=== PATIENT | male | born 1980 | race Two or more races ===

== ENCOUNTER 2022-12-18 13:33 | Observation (INO) | payer MEDICAID ==
[2022-12-18] MEDS ORDERED: SODIUM CHLORIDE 0.9% 1,000 ML IV STA (14:01)
[2022-12-18] MEDS ORDERED: HYDROmorphone 1 MG/ML CARPUJECT IVP STA ×2 (14:01→16:55)
--- NOTE | 2022-12-18 14:05 | ED Physician Documentation ---
History of Present Illness - Stated complaint Stated Complaint: ABD PX - Chief complaint Chief Complaint: Abd Pain - Additonal information Additional information: 42-year-old male presents emergency department for evaluation of acute left lo wer inguinal pain. States it began yesterday morning. Pain is worse when standing up. He feels a bulge in the inguinal region. Pain improves when he puts pressure on the bulge. He does have a history of inguinal hernia repair when he was a child. He is unsure which side. He has had no fevers or vomiting. He does appear very uncomfortable. Denies taking any prescribed medications. Denies alcohol use. Daily tobacco user. His at the bedside also reports the patient's been having some left lower back discomfort after mowing tall grass last week. Has taken Tylenol without relief of symptoms. No melena or hematochezia. No previous past surgical history Review of Systems Constitutional: denies: Fever, Chills Cardiac: reports: Reviewed and negative Respiratory: reports: Reviewed and negative GI: reports: Abdominal Pain. denies: Nausea, Vomiting, Bloody / black stool : reports: Reviewed and negative Skin: reports: Reviewed and negative Musculoskeletal: reports: Reviewed and negative PD PAST MEDICAL HISTORY - Present Medications Home Medications: Ambulatory Orders Medication Instructions Recorded Confirmed No Known Home Medications 12/18/22 12/18/22 - Allergies Allergies/Adverse Reactions: Allergies Allergy/AdvReac Type Severity Reaction Status Date / Time No Known Drug Allergies Allergy Verified 12/18/22 13:45 PD ED PE NORMAL - General General: Alert and oriented X 3. No: No acute distress (Appears uncomfortable and in pain) - Cardiac Cardiac: RRR, No murmur - Respiratory Respiratory: No respiratory distress - Abdomen Abdomen: Normal bowel sounds, Soft. No: Non tender (Palpable hernia felt in the left lower quadrant inguinal region. I am unable to reduce it.) - Derm Derm: Normal color, Warm and dry - Extremities Extremities: No deformity - Neuro Neuro: Alert and oriented X 3, natural resource specialist 2-12 intact Eye Opening: Spontaneous Motor: Obeys Commands Verbal: Oriented GCS Score: 15 - Psych Psych: Normal mood Results - Vitals Vitals: Vital Signs - 24 hr 12/18/22 12/18/22 12/18/22 13:41 14:01 16:07 Temperature 35.7 C L Heart Rate 97 61 59 L Respiratory 19 26 H 16 Rate Blood Pressure 130/87 H 161/95 H 166/93 H O2 Saturation 98 97 98 Oxygen O2 Source Room air - Labs Labs: Laboratory Tests 12/18/22 12/18/22 12/18/22 14:02 14:02 16:50 WBC 18.2 H RBC 5.04 Hgb 15.0 Hct 45.2 MCV 89.7 MCH 29.8 MCHC 33.2 RDW 13.6 Plt Count 328 MPV 8.8 Neut # (Auto) 15.1 H Lymph # (Auto) 2.1 [place] # (Auto) 0.9 Eos # (Auto) 0.0 Baso # (Auto) 0.1 Absolute Nucleated RBC 0.00 Nucleated RBC % 0.0 Sodium 143 Potassium 4.0 Chloride 105 Carbon Dioxide 25 Anion Gap 13.0 BUN 14 Creatinine 1.0 Estimated GFR (MDRD) 81 L Glucose 174 H Calcium 9.2 Total Bilirubin 1.2 H AST 12 ALT 17 Alkaline Phosphatase 76 Total Protein 7.9 Albumin 4.3 Globulin 3.6 Albumin/Globulin Ratio 1.2 Lipase 25 Urine Color YELLOW Urine Clarity CLEAR Urine pH 5.0 Ur Specific [place] 1.010 Urine Protein NEGATIVE Urine Glucose (UA) NEGATIVE Urine Ketones 40 H Urine Occult Blood SMALL H Urine Nitrite NEGATIVE Urine Bilirubin NEGATIVE Urine Urobilinogen 0.2 (NORMAL) Ur Leukocyte Esterase NEGATIVE Urine RBC 0-5 Urine WBC 0-3 Ur Squamous Epith Cells NONE SEEN Urine Bacteria None Seen Ur Microscopic Review INDICATED Urine Culture Comments NOT INDICATED - Rads (name of study) CT abd Relevant Findings:: Final report received (Small right inguinal hernia contains small knuckle of the anterior wall of the cecum without evidence of entrapment or vascular compromise. Normal appendix in the pelvis. Small left inguinal hernia contains fat without bowel involvement) scrotal US Relevant Findings:: Final report received (Left inguinal hernia. Unremarkable ultrasound of the scrotum and testes otherwise) PD Medical Decision Making - ED course Complexity details: reviewed results, re-evaluated patient, considered differential, d/w patient ED course: 42-year-old male presents emergency department for evaluation of acute focal left lower groin/pelvic pain that began yesterday. He points to a site where he has a little bit of swelling and pain is improved when he presses on the lump. He does have a remote history of inguinal hernia repair on the left side when he was an infant. On exam he is exquisitely tender in the left lower quadrant with even minimal palpation. I did obtain a CBC and electrolytes. Per my interpretation there is some significant leukocytosis with white count of 18.2 thousand. No worrisome anemia or otherwise any findings of electrolyte derangement. However given the concern for possible incarceration of the hernia a CT of the abdomen was completed. It does show bilateral inguinal hernias. The right-sided inguinal hernia does have a small amount of bowel but nothing to suggest Incarceration or strangulation. The left inguinal hernia does contain a small amount of fat but no bowel. I am however given how exquisitely tender the patient was with the associated leukocytosis I did ask our surgeon Dr. Edgar Farrar to come to the bedside to evaluate the patient. 1800: Dr. Farrar has evaluated the patient. He feels that the pain is out of proportion for the findings of the inguinal hernia at the bedside. He did requ est a scrotal/testicular ultrasound to rule out epididymal or or chaotic findings that could cause the pain. The patient's urinalysis is not consistent with infection. Subsequently the ultrasound was completed and is negative for findings related to the scrotum and testes. Though the left inguinal hernia is again seen. I discussed this finding with Dr. Farrar at the bedside he is going to admit the patient for observation and reevaluation of his hernia pain. Departure - Departure Disposition: ED Place in Observation Clinical Impression: Left inguinal hernia
[2022-12-18 14:12] LABS: BASOPHILS # (AUTO) 0.1 10^3/uL (0.0-0.1); BASOPHILS % (AUTO) 0.3 %; EOSINOPHILS % (AUTO) 0.2 %; HCT - HEMATOCRIT 45.2 % (42.0-52.0); LYMPHOCYTES # (AUTO) 2.1 10^3/uL (1.5-3.5); LYMPHOCYTES % (AUTO) 11.2 %; MEAN CORPUSCULAR HEMOGLOBIN 29.8 pg (27.0-31.0); MEAN CORPUSCULAR HGB CONC 33.2 g/dL (32.0-36.0); MEAN CORPUSCULAR VOLUME 89.7 fL (80.0-94.0); MEAN PLATELET VOLUME 8.8 fL (7.4-11.4); MONOCYTES # (AUTO) 0.9 10^3/uL (0.0-1.0); MONOCYTES % (AUTO) 5.2 %; NEUTROPHILS # (AUTO) 15.1 10^3/uL (1.5-6.6); NEUTROPHILS % (AUTO) 82.7 %; PLT - PLATELET COUNT 328 10^3/uL (130-450); RED BLOOD COUNT 5.04 10^6/uL (4.70-6.10); RED CELL DISTRIBUTION WIDTH 13.6 % (12.0-15.0); WHITE BLOOD COUNT 18.2 x10^3/uL (4.8-10.8)
[2022-12-18] MEDS ORDERED: iohexoL-300 100 ML VIAL ONE (14:24)
[2022-12-18 14:26] LABS: ALBUMIN 4.3 g/dL (3.2-5.5); ALBUMIN/GLOBULIN RATIO 1.2 (1.0-2.2); BILIRUBIN,TOTAL 1.2 mg/dL (0.2-1.0); CALCIUM 9.2 mg/dL (8.5-10.3); TOTAL PROTEIN 7.9 g/dL (6.7-8.2)
--- NOTE | 2022-12-18 16:03 | CT Report ---
PROCEDURE: CT and pelvis with contrast INDICATIONS: ? incarcerated left inguinal hernia CONTRAST: 100ml omnipaque 300 TECHNIQUE: After the administration of contrast, 5 mm thick sections acquired from the diaphragms to the symphys is. 5 mm thick coronal and sagittal reformats were acquired. For radiation dose reduction, the foll owing was used: automated exposure control, adjustment of mA and/or kV according to patient size. COMPARISON: None FINDINGS: Image quality: Excellent. Lung bases and heart: Unremarkable. Liver: No solid mass. Gallbladder and biliary tree: Spleen: No splenomegaly. Pancreas: No pancreatic ductal dilation. Adrenals: No adrenal nodule. Kidneys and ureters: No hydronephrosis. No renal cystic lesion which requires follow up. No solid mas s. Bowel and peritoneum: No bowel distension. No pathologic free fluid. Lymph nodes: No central or retroperitoneal adenopathy. Vessels: No infrarenal aortic aneurysm. PELVIS Reproductive organs: Unremarkable. Bladder: No abnormal wall thickening, accounting for underdistension. Pelvic lymph nodes: No pelvic adenopathy by size criteria. Bones: Degenerative disc disease and arthropathy Other: Small bilateral inguinal hernias present. Right inguinal hernia does contain small knuckle of anterior wall of the cecum, but no evidence of entrapment. Normal appendix noted in the pelvis. Left inguinal hernia contains fat without bowel involvement. IMPRESSION: 1. Small right inguinal hernia contains small knuckle anterior wall of the cecum without evidence of entrapment or vascular compromise. Normal appendix in the pelvis. 2. Small left inguinal hernia contains fat without bowel involvement. Reviewed by: Kali Arenas MD on 12/18/2022 3:01 PM ALF Approved by: Kali Arenas MD on 12/18/2022 3:01 PM AKJOSE MARTIN Station ID: [id number]
[2022-12-18 16:59] LABS: BILIRUBIN,URINE NEGATIVE (NEGATIVE); GLUCOSE, URINE (UA) NEGATIVE (NEGATIVE); KETONES,URINE (UA) 40 mg/dL (NEGATIVE); LEUKOCYTE ESTERASE, URINE NEGATIVE (NEGATIVE); NITRITE,URINE NEGATIVE (NEGATIVE); OCCULT BLOOD,URINE SMALL (NEGATIVE); PROTEIN,URINE NEGATIVE (NEGATIVE); UROBILINOGEN,URINE 0.2 (NORMAL) E.U./dL (NORMAL)
[2022-12-18 17:01] LABS: CLARITY,URINE CLEAR (CLEAR)
[2022-12-18 17:15] LABS: BACTERIA,URINE None Seen /HPF (None Seen); RBC,URINE 0-5 /HPF (0-5); SQUAMOUS EPITHELIAL CELL,UR NONE SEEN (<= Few); WBC,URINE 0-3 /HPF (0-3)
--- NOTE | 2022-12-18 17:18 | CONSULTATION NOTE ---
Referring Provider Consult Date: 12/18/22 Chief Complaint - Chief Complaint Chief Complaint: left lower quadrant abdominal pain History of Present Illness - History Obtained From Records Reviewed: yes History obtained from: pt Exam Limitations: none - History of Present Illness HPI Comment/Other: strained his back 2 weeks ago while mowing his yard. noticed left groin swelling several days ago. left lower quadrant pain for about 36 hours and currently having chills or shaking. no fever. still has left back pain, left groin pain, and left testicle pain. denies right groin symptoms. his hernia bulge always goes away when he lies flat. History - Past Medical History MRSA Hx?: No - Past Surgical History General: reports: Other Meds/Allgy - Home Medications Home Medications: Ambulatory Orders Medication Instructions Recorded Confirmed No Known Home Medications 12/18/22 12/18/22 - Allergies Allergies/Adverse Reactions: Allergies Allergy/AdvReac Type Severity Reaction Status Date / Time No Known Drug Allergies Allergy Verified 12/18/22 13:45 Review of Systems - Other Findings Other Findings: 10 pt ros as above otherwise unremarkable Exam - Vital Signs Reviewed Vital Signs: Yes Vital Signs: Vital Signs x48h Temp Pulse Resp BP Pulse Ox 12/18/22 16:07 59 L 16 166/93 H 98 12/18/22 14:01 61 26 H 161/95 H 97 12/18/22 13:41 35.7 C L 97 19 130/87 H 98 - Physical Exam General Appearance: positive: Alert, Mild distress Eyes Bilateral: positive: PERRL, EOMI, No scleral icterus ENT: positive: No signs of dehydration Neck: positive: No JVD, Trachea midline Respiratory: positive: No respiratory distress Cardiovascular: positive: Regular rate & rhythm Abdomen: positive: Non-tender, No distention, Other (bilateral inguinal hernias which are soft and easily reducible. no inflammation he is very thin ie easy exam) Neurologic/Psychiatric: positive: Oriented x3 Conclusion and Plan - Lab Results Laboratory Results 12/18/22 16:50: Urine Color YELLOW, Urine Clarity CLEAR, Urine pH 5.0, Ur Specific [place] 1.010, Urine Protein NEGATIVE, Urine Glucose (UA) NEGATIVE, Urine Ketones 40 H, Urine Occult Blood SMALL H, Urine Nitrite NEGATIVE, Urine Bilirubin NEGATIVE, Urine Urobilinogen 0.2 (NORMAL), Ur Leukocyte Esterase NEGATIVE, Ur Microscopic Review INDICATED, Urine Culture Comments Not Reportable 12/18/22 14:02: Sodium 143, Potassium 4.0, Chloride 105, Carbon Dioxide 25, Anion Gap 13.0, BUN 14, Creatinine 1.0, Estimated GFR (MDRD) 81 L, Glucose 174 H, Calcium 9.2, Total Bilirubin 1.2 H, AST 12, ALT 17, Alkaline Phosphatase 76, Total Protein 7.9, Albumin 4.3, Globulin 3.6, Albumin/Globulin Ratio 1.2, Lipase 25 12/18/22 14:02: WBC 18.2 H, RBC 5.04, Hgb 15.0, Hct 45.2, MCV 89.7, MCH 29.8, MCHC 33.2, RDW 13.6, Plt Count 328, MPV 8.8, Neut # (Auto) 15.1 H, Lymph # (Auto) 2.1, [place] # (Auto) 0.9, Eos # (Auto) 0.0, Baso # (Auto) 0.1, Absolute Nucleated RBC 0.00, Nucleated RBC % 0.0 - Diagnostic Imaging Results Diagnostic Imaging Results: positive: Read independently (no inguinal inflammation. no incarcerated hernias) - Diagnosis Diagnosis: left back, groin, testicle pain. easily reducible bilateral inguinal hernias. elevated wbc and chills/ shakes - Plan Plan: ua and testicular ultrasound. if unremarkable and not improving plan admit for observation. we discussed an easily reducible soft inguinal hernia without inflammation by exam or ct scan would not cause an elevated wbc and shaking chills. plan rule out other etiology for his symptoms prior to hernia surgery
[2022-12-18] MEDS ORDERED: iohexoL-300 100 ML VIAL IVP ONE (18:11)
--- NOTE | 2022-12-18 18:26 | Ultrasound Report ---
PROCEDURE: Testicle w/Doppler INDICATIONS: left inguinal pain; known hernia; ? epididymal TECHNIQUE: Real-time scanning was performed of the scrotum and testicles, with image documentation. Color and p ulse Doppler interrogation was performed of both testicles. COMPARISON: None. FINDINGS: Right: Testicle is normal in size at 4.2 x 2 x 2.5 cm, and homogenous in echotexture. Epididymis is normal in overall size and morphology. Small right hydrocele is seen. No varicoceles. Overlying scr otal skin is normal in thickness. Left: Testicle is normal in size at 3.1 x 1.5 x 1.6 cm, and homogeneous in echotexture. Epididymis is normal in overall size and morphology. Tiny less than 5 mm cyst is seen in left epididymis. Small left hydrocele is seen. No varicoceles. Overlying scrotal skin is normal in thickness. Doppler: Color and pulse Doppler demonstrate normal and symmetric arterial flow in both testicles. Focus ultrasound examination in left inguinal region at patient's reported area of pain shows fat-con taining left inguinal hernia with neck measures 1.6 cm in width. This is partially reducible with the nonreducible herniated portion measures 5 x 2.7 cm in size. IMPRESSION: 1. Partially reducible fat-containing left inguinal hernia as above. 2. Normal-appearing bilateral testes. Tiny left epididymal cyst. Small amount of bilateral hydrocele. Reviewed by: Hardy Spear MD on 12/18/2022 6:24 PM PDT Approved by: Hardy Spear MD on 12/18/2022 6:24 PM PDT Station ID: [id number]
[2022-12-18] MEDS ORDERED: SODIUM CHLORIDE FLUSH 0.9% 10 ML SYRINGE IVP PRN (19:03)
[2022-12-18] MEDS ORDERED: ACETAMINOPHEN 325 MG TABLET PO PRN (19:03)
[2022-12-18] MEDS ORDERED: ZOLPIDEM 5 MG TABLET PO PRN (19:03)
[2022-12-18] MEDS ORDERED: oxyCODONE 5 MG TABLET PO PRN (19:03)
[2022-12-18] MEDS: HYDROmorphone 0.5 MG/0.5 ML SYRINGE IVP PRN ×2 (20:02→23:57)
[2022-12-18] MEDS: LACTATED RINGERS 1,000 ML IV SCH (20:02)
[2022-12-18] MEDS: SODIUM CHLORIDE FLUSH 0.9% 10 ML SYRINGE IVP SCH (23:55)
[2022-12-19] MEDS: HYDROmorphone 0.5 MG/0.5 ML SYRINGE IVP PRN ×6 (04:31→23:42)
[2022-12-19] MEDS: LACTATED RINGERS 1,000 ML IV SCH ×2 (05:31→17:11)
[2022-12-19] MEDS: SODIUM CHLORIDE FLUSH 0.9% 10 ML SYRINGE IVP SCH ×3 (07:41→23:27)
[2022-12-19 07:44] LABS: HCT - HEMATOCRIT 40.6 % (42.0-52.0); HGB - HEMOGLOBIN 13.7 g/dL (14.0-18.0); MEAN CORPUSCULAR HGB CONC 33.7 g/dL (32.0-36.0); RED BLOOD COUNT 4.56 10^6/uL (4.70-6.10); RED CELL DISTRIBUTION WIDTH 13.6 % (12.0-15.0); WHITE BLOOD COUNT 13.9 x10^3/uL (4.8-10.8)
--- NOTE | 2022-12-19 08:13 | PROVIDER PROGRESS NOTE ---
Subjective - Prog Note Date Prog Note Date: 12/19/22 - Subjective Subjective: complaint of left lower back pain Objective - Vital Signs/Intake & Output Reviewed Vital Signs: Yes Vital Signs: Vital Signs x48h Temp Pulse Resp BP Pulse Ox 12/19/22 04:35 36.7 C 63 16 187/81 H 97 Intake & Output: Intake & Output 12/16/22 12/17/22 12/18/22 12/19/22 23:59 23:59 23:59 23:59 Intake Total 1703.333 745 Balance 1703.333 745 - Objective General Appearance: positive: No acute distress, Other (awakens to voice. sleepy.) Respiratory: positive: No respiratory distress Abdomen: positive: No distention Neurologic/Psychiatric: positive: Oriented x3 - Lab Results Fish Bones: 12/19/22 07:12 12/18/22 14:02 Other Labs: Lab Results x24hrs 12/19/22 12/18/22 12/18/22 Range/Units 07:12 16:50 14:02 WBC 13.9 H (4.8-10.8) x10^3/uL RBC 4.56 L (4.70-6.10) 10^6/uL Hgb 13.7 L (14.0-18.0) g/dL Hct 40.6 L (42.0-52.0) % MCV 89.0 (80.0-94.0) fL MCH 30.0 (27.0-31.0) pg MCHC 33.7 (32.0-36.0) g/dL RDW 13.6 (12.0-15.0) % Plt Count 282 (130-450) 10^3/uL MPV 9.0 (7.4-11.4) fL Neut # (Auto) (1.5-6.6) 10^3/uL Lymph # (Auto) (1.5-3.5) 10^3/uL [place] # (Auto) (0.0-1.0) 10^3/uL Eos # (Auto) (0.0-0.7) 10^3/uL Baso # (Auto) (0.0-0.1) 10^3/uL Absolute Nucleated RBC x10^3/uL Nucleated RBC % /100WBC Sodium 143 (135-145) mmol/L Potassium 4.0 (3.5-5.0) mmol/L Chloride 105 (101-111) mmol/L Carbon Dioxide 25 (21-32) mmol/L Anion Gap 13.0 (6-13) BUN 14 (6-20) mg/dL Creatinine 1.0 (0.6-1.2) mg/dL Estimated GFR (MDRD) 81 L (>89) Glucose 174 H (70-100) mg/dL Calcium 9.2 (8.5-10.3) mg/dL Total Bilirubin 1.2 H (0.2-1.0) mg/dL AST 12 (10-42) IU/L ALT 17 (10-60) IU/L Alkaline Phosphatase 76 (42-121) IU/L Total Protein 7.9 (6.7-8.2) g/dL Albumin 4.3 (3.2-5.5) g/dL Globulin 3.6 (2.1-4.2) g/dL Albumin/Globulin Ratio 1.2 (1.0-2.2) Lipase 25 (22-51) U/L Urine Color YELLOW Urine Clarity CLEAR (CLEAR) Urine pH 5.0 (5.0-7.5) PH Ur Specific [place] 1.010 (1.002-1.030) Urine Protein NEGATIVE (NEGATIVE) mg/dL Urine Glucose (UA) NEGATIVE (NEGATIVE) mg/dL Urine Ketones 40 H (NEGATIVE) mg/dL Urine Occult Blood SMALL H (NEGATIVE) Urine Nitrite NEGATIVE (NEGATIVE) Urine Bilirubin NEGATIVE (NEGATIVE) Urine Urobilinogen 0.2 (NORMAL) (NORMAL) E.U./dL Ur Leukocyte Esterase NEGATIVE (NEGATIVE) Urine RBC 0-5 (0-5) /HPF Urine WBC 0-3 (0-3) /HPF Ur Squamous Epith Cells NONE SEEN (<= Few) Urine Bacteria None Seen (None Seen) /HPF Ur Microscopic Review INDICATED Urine Culture Comments NOT INDICATED 12/18/22 Range/Units 14:02 WBC 18.2 H (4.8-10.8) x10^3/uL RBC 5.04 (4.70-6.10) 10^6/uL Hgb 15.0 (14.0-18.0) g/dL Hct 45.2 (42.0-52.0) % MCV 89.7 (80.0-94.0) fL MCH 29.8 (27.0-31.0) pg MCHC 33.2 (32.0-36.0) g/dL RDW 13.6 (12.0-15.0) % Plt Count 328 (130-450) 10^3/uL MPV 8.8 (7.4-11.4) fL Neut # (Auto) 15.1 H (1.5-6.6) 10^3/uL Lymph # (Auto) 2.1 (1.5-3.5) 10^3/uL [place] # (Auto) 0.9 (0.0-1.0) 10^3/uL Eos # (Auto) 0.0 (0.0-0.7) 10^3/uL Baso # (Auto) 0.1 (0.0-0.1) 10^3/uL Absolute Nucleated RBC 0.00 x10^3/uL Nucleated RBC % 0.0 /100WBC Sodium (135-145) mmol/L Potassium (3.5-5.0) mmol/L Chloride (101-111) mmol/L Carbon Dioxide (21-32) mmol/L Anion Gap (6-13) BUN (6-20) mg/dL Creatinine (0.6-1.2) mg/dL Estimated GFR (MDRD) (>89) Glucose (70-100) mg/dL Calcium (8.5-10.3) mg/dL Total Bilirubin (0.2-1.0) mg/dL AST (10-42) IU/L ALT (10-60) IU/L Alkaline Phosphatase (42-121) IU/L Total Protein (6.7-8.2) g/dL Albumin (3.2-5.5) g/dL Globulin (2.1-4.2) g/dL Albumin/Globulin Ratio (1.0-2.2) Lipase (22-51) U/L Urine Color Urine Clarity (CLEAR) Urine pH (5.0-7.5) PH Ur Specific [place] (1.002-1.030) Urine Protein (NEGATIVE) mg/dL Urine Glucose (UA) (NEGATIVE) mg/dL Urine Ketones (NEGATIVE) mg/dL Urine Occult Blood (NEGATIVE) Urine Nitrite (NEGATIVE) Urine Bilirubin (NEGATIVE) Urine Urobilinogen (NORMAL) E.U./dL Ur Leukocyte Esterase (NEGATIVE) Urine RBC (0-5) /HPF Urine WBC (0-3) /HPF Ur Squamous Epith Cells (<= Few) Urine Bacteria (None Seen) /HPF Ur Microscopic Review Urine Culture Comments - Diagnostic Imaging Diagnostic Imaging Results: positive: Read independently Assessment/Plan - Problem List (1) Left inguinal hernia Impression: only complaint this am is left lower back pain. he has soft easily reducible bilateral inguinal hernias. elevated wbc without etiology at this time. wbc improved this am. afebrile. plan diet and d/c. follow up surgery to discuss hernia repair(s)
--- NOTE | 2022-12-19 10:32 | PHARMACY PROGRESS NOTE ---
- Best Possible Medication History Admit Date and Time: 12/18/221902 Processed by: Pharmacy Medication History completed: Yes Patient Interview: Completed (pt isn't using any meds) As the person ultimately responsible for medication therapy, providers are able to order a medication from an existing home medication list in [facility] via the "Reconcile Routine" prior to Confirmation of that medication by business support professional. Such practice is discouraged except when the physician, in their clinical judgment, deems that a medical need exists for a medication without regard to previous use.
[2022-12-20] MEDS: LACTATED RINGERS 1,000 ML IV SCH (00:41)
[2022-12-20] MEDS: HYDROmorphone 0.5 MG/0.5 ML SYRINGE IVP PRN (07:30)
[2022-12-20 07:35] LABS: HCT - HEMATOCRIT 40.9 % (42.0-52.0); HGB - HEMOGLOBIN 13.8 g/dL (14.0-18.0); MEAN CORPUSCULAR HEMOGLOBIN 29.9 pg (27.0-31.0); MEAN CORPUSCULAR HGB CONC 33.7 g/dL (32.0-36.0); MEAN CORPUSCULAR VOLUME 88.5 fL (80.0-94.0); MEAN PLATELET VOLUME 8.7 fL (7.4-11.4); RED BLOOD COUNT 4.62 10^6/uL (4.70-6.10); RED CELL DISTRIBUTION WIDTH 13.2 % (12.0-15.0); WHITE BLOOD COUNT 10.1 x10^3/uL (4.8-10.8)
[2022-12-20] MEDS ORDERED: HYDROmorphone 0.5 MG/0.5 ML SYRINGE IVP PRN ×3 (09:11→11:27)
[2022-12-20] MEDS ORDERED: ONDANSETRON 4 MG/2 ML VIAL IVP PRN ×4 (09:11→11:27)
[2022-12-20] MEDS ORDERED: fentaNYL 100 MCG/2 ML VIAL IVP PRN ×3 (09:11→11:27)
[2022-12-20] MEDS ORDERED: NALOXONE 0.4 MG/ML VIAL IVP PRN ×3 (09:11→11:27)
[2022-12-20] MEDS ORDERED: ATROPINE ABBOJECT 1 MG/10 ML SYRINGE IVP PRN ×3 (09:11→11:27)
[2022-12-20] MEDS ORDERED: ePHEDrine 50 MG/ML VIAL IVP PRN ×3 (09:11→11:27)
[2022-12-20] MEDS ORDERED: PROPOFOL 500 MG/50 ML 500 MG/50 ML VIAL ONE (09:12)
[2022-12-20] MEDS ORDERED: LIDOCAINE-PF 2% 10 ML AMP SUBQ ONE (09:14)
--- NOTE | 2022-12-20 09:14 | ANESTHESIA ---
Pre-Anesthesia VS, & Labs - Diagnosis Diagnosis left back, groin, testicle pain. easily reducible bilateral inguinal hernias. elevated wbc and chills/ shakes - Procedure open L inguinal hernia repair Vital Signs: Temp Pulse Resp BP Pulse Ox O2 Flow Rate 36.7 C 74 16 149/72 H 95 12/20/22 08:05 12/20/22 08:05 12/20/22 08:05 12/20/22 08:05 12/20/22 08:05 Height: 5 ft 11 in Weight (kg): 74 kg Body Mass Index: 22.7 BMI Classification: Normal - NPO >8 hours - Lab Results Current Lab Results: Laboratory Tests 12/20/22 07:25: WBC 10.1, RBC 4.62 L, Hgb 13.8 L, Hct 40.9 L, MCV 88.5, MCH 29.9, MCHC 33.7, RDW 13.2, Plt Count 274, MPV 8.7 12/19/22 07:12: WBC 13.9 H, RBC 4.56 L, Hgb 13.7 L, Hct 40.6 L, MCV 89.0, MCH 30.0, MCHC 33.7, RDW 13.6, Plt Count 282, MPV 9.0 12/18/22 14:02: Sodium 143, Potassium 4.0, Chloride 105, Carbon Dioxide 25, Anion Gap 13.0, BUN 14, Creatinine 1.0, Estimated GFR (MDRD) 81 L, Glucose 174 H , Calcium 9.2, Total Bilirubin 1.2 H, AST 12, ALT 17, Alkaline Phosphatase 76, Total Protein 7.9, Albumin 4.3, Globulin 3.6, Albumin/Globulin Ratio 1.2, Lipase 25 12/18/22 14:02: WBC 18.2 H, RBC 5.04, Hgb 15.0, Hct 45.2, MCV 89.7, MCH 29.8, MCHC 33.2, RDW 13.6, Plt Count 328, MPV 8.8, Neut # (Auto) 15.1 H, Lymph # (Auto) 2.1, [place] # (Auto) 0.9, Eos # (Auto) 0.0, Baso # (Auto) 0.1, Absolute Nucleated RBC 0.00, Nucleated RBC % 0.0 Fish Bones: 12/20/22 07:25 12/18/22 14:02 Home Medications and Allergies Home Medications: Ambulatory Orders No Known Home Medications 12/18/22 Active Medications Acetaminophen (Acetaminophen 325 Mg Tablet) 650 mg PO Q4HR PRN PRN Reason: Pain 1 to 4, or Fever Hydromorphone HCl (Hydromorphone 0.5 Mg/0.5 Ml Syringe) 0.5 mg IVP Q2H PRN PRN Reason: Pain 8 to 10 Last Admin: 12/20/22 07:30 Dose: 0.5 mg Lactated Ringer's (Lr) 1,000 mls @ 100 mls/hr IV .Q10H [facility] Last Admin: 12/20/22 00:41 Dose: 100 mls/hr Oxycodone HCl (Oxycodone 5 Mg Tablet) 5 mg PO Q4HR PRN PRN Reason: Pain 5 to 7 Sodium Chloride (Sodium Chloride Flush 0.9% 10 Ml Syringe) 10 ml IVP PRN PRN PRN Reason: NEEDED PER PROVIDER ORDERS Sodium Chloride (Sodium Chloride Flush 0.9% 10 Ml Syringe) 10 ml IVP 0100,0900,1700 [facility] Last Admin: 12/19/22 23:27 Dose: Not Given Zolpidem Tartrate (Zolpidem 5 Mg Tablet) 5 mg PO QPM PRN PRN Reason: Insomnia No Known Home Medications 12/18/22 Allergies/Adverse Reactions: Allergies Allergy/AdvReac Type Severity Reaction Status Date / Time No Known Drug Allergies Allergy Verified 12/18/22 13:45 Anes History & Medical History - Anesthetic History Anesthesia Complications: reports: No previous complications Family history of Anesthesia Complications: Denies Family history of Malignant Hyperthermia: Denies - Medical History Cardiovascular: reports: None Gastrointestinal: reports: None Urinary: reports: None Neuro: reports: None Musculoskeletal: reports: None Endocrine/Autoimmune: reports: None Blood Disorders: reports: None Skin: reports: None Smoking Status: Current every day smoker Psychosocial: reports: Substance abuse, Alcohol, Cannabis History of Cancer?: No - Surgical History General: reports: Other Exam General: Alert, Oriented x3, Cooperative Dental: Loose/Frag, Poor dentition, Other (several missing at top) Mouth Openin Fingerbreadth Neck Mobility: Normal Mallampati classification: II Thyromental Distance: 4-6 cm Respiratory: Lungs clear, Normal breath sounds, No respiratory distress Cardiovascular: Regular rate Neurological: Normal speech Mental/Cognitive Status: Alert/Oriented X3, Normal for patient Cognitive Status: Within normal limits Plan Anesthesia Type: General Consent for Procedure(s) Verified and Reviewed: Yes Code Status: Attempt Resuscitation ASA classification: 2-Mild systemic disease Is this case an emergency?: No
[2022-12-20] MEDS ORDERED: MORPHINE 2 MG/ML CARPUJECT IVP PRN ×2 (09:15→11:27)
[2022-12-20] MEDS ORDERED: METOCLOPRAMIDE 10 MG/2 ML VIAL IVP PRN ×2 (09:15→11:27)
[2022-12-20] MEDS ORDERED: LIDOCAINE 1%-EPI 1:100000 20 ML MDV ONE (09:18)
[2022-12-20] MEDS ORDERED: BUPIVACAINE 0.25% PF 30 ML VIAL ONE (09:19)
[2022-12-20] MEDS ORDERED: MIDAZOLAM 2 MG/2 ML VIAL ONE (09:39)
[2022-12-20] MEDS ORDERED: fentaNYL 100 MCG/2 ML VIAL ONE (09:39)
[2022-12-20] MEDS ORDERED: LACTATED RINGERS 1,000 ML IV SCH ×2 (10:00)
[2022-12-20] MEDS ORDERED: LIDOCAINE-MPF 1% 30 ML VIAL SUBQ ONE (10:09)
[2022-12-20] MEDS ORDERED: BUPIVACAINE 0.25% PF 30 ML VIAL SUBQ ONE (10:09)
[2022-12-20] MEDS ORDERED: DEXAMETHASONE 4 MG/ML VIAL ONE (10:15)
[2022-12-20] MEDS ORDERED: ONDANSETRON 4 MG/2 ML VIAL ONE (10:15)
[2022-12-20] MEDS ORDERED: oxyCODONE 5 MG TABLET PO PRN (11:15)
[2022-12-20] MEDS ORDERED: LACTATED RINGERS 1,000 ML IV ONE ×2 (11:17→11:54)
--- NOTE | 2022-12-20 11:24 | OPERATIVE REPORT ---
Operative Report - General Admit Date: 12/18/22 Procedure Date: 12/20/22 Planned Procedure: open left inguinal hernia repair with mesh Pre-Op Diagnosis: symptomatic left inguinal hernia Procedure Performed: open left inguinal hernia repair with mesh Post Op Diagnosis: indirect left inguinal hernia - Procedure Note Primary Surgeon: angélica larry Anesthesia Technique: General LMA, Local Pathology: not sent Estimated Blood Loss (mL): 2 Drain/Tube Type: Other (none) Indications: symptomatic left inguinal hernia Findings: chronic appearing indirect inguinal hernia Complications: none - Other Other Information/Narrative: Patient was properly identified brought to the operating room and placed in supine position. Sequential compression devices were placed. Laryngeal mask anesthesia was induced. He was prepped and draped in a sterile fashion and given preoperative antibiotics. Local anesthetic was given throughout the procedure. A 5 cm incision was made in the direction of Karsten's lines just cephalad of the pubic tubercle. Dissection proceeded with cutting current cautery. The superficial epigastric vein was not present within the area of surgery. Dissection proceeded down to the aponeurosis. The aponeurosis was opened in the direction of its fibers and extended to the external ring. Cord structures were mobilized and brought up. The nerves were carefully protected and preserved. Cord structures were mobilized and brought up. An indirect inguinal hernia was present. The hernia sac was mobilized off the cord structures and suture ligated with 2 O silk and further reduced. Preperitoneal fat was removed. The base was tied with 2 O vicryl. Polypropylene mesh was cut to size and with tails. The mesh was secured with multiple interrupted 0 Ethibond sutures. Sutures were placed along the pubic tubercle, Bravo's ligament area and along the shelving border of Poupart's ligament. Sutures were placed medially along the abdominal wall musculature and internal oblique. The medial tail of the mesh was secured to the shelving border of Poupart's ligament with 3 interrupted 0 ethibond sutures recreating the internal ring of appropriate size. An additional suture was placed in the crotch of the mesh recreating an internal ring of appropriate size. Aponeurosis was closed with a running 2-0 Vicryl suture. The opposite was closed with interrupted 3-0 Vicryl suture. Buried interrupted subdermal 3-0 Vicryl sutures were then placed. Skin was closed with a running 4-0 Monocryl subcuticular suture. Dressing was applied. Patient was awakened and brought to recovery in good condition.
--- NOTE | 2022-12-20 13:10 | ANESTHESIA POST OP EVALUATION ---
Anesthesia Post Eval - Post Anesthesia Eval Vitals: Last Vital Signs Temp 36.6 C 12/20/22 12:40 Pulse 69 12/20/22 12:40 Resp 14 12/20/22 12:40 BP 129/72 12/20/22 12:40 Pulse Ox 93 12/20/22 12:40 O2 Flow Rate CV Function Including HR & BP: Stable Pain Control: Satisfactory Nausea & Vomiting: Negative Mental Status: Baseline Respiratory Status: Airway Patent Hydration Status: Satisfactory Anesthesia Complications: None
--- NOTE | 2022-12-20 13:14 | Discharge Plan ---
Discharge Plan Problem Reviewed?: Yes Disposition: Home, Self Care Condition: Good Prescriptions: Oxycodone HCl/Acetaminophen [Percocet 5-325 mg Tablet] 1 tab PO Q6HR PRN #30 tablet PRN Reason: Pain 5-7 Diet: Regular Activity Restrictions: Activity as Tolerated Shower Restrictions: No Driving Restrictions: Yes (no driving for 5 to 7 days and while taking pain pills) Weight Bearing: Full Weight Health Concerns: back pain, bilateral inguinal hernias Plan of Treatment: open left inguinal hernia repair performed 12/20/2022 Assessment: tolerated surgery well. had elevated wbc on admission of unknown etiology. resolved prior to surgery Additional Instructions or Follow Up instructions: call the surgery office for and appointment [phone] No Smoking: If you smoke, Please STOP! Call for help. Follow-up with: Edilson Farrar MD [Provider Admit Priv/Credential] -
--- NOTE | 2022-12-20 13:20 | DISCHARGE SUMMARY ---
"Discharge Summary Admit Date: 12/18/22 Discharge Date: 12/20/22 Discharging Provider: angélica larry Code Status: Attempt Resuscitation Condition at Discharge: Good Discharge Disposition: 01 Home, Self Care Discharge Facility Name: [facility] - DIAGNOSES Admission Diagnoses: elevated wbc, back pain. reducible bilateral inguinal hernias, left groin and testicle pain Discharge Diagnoses with Status of Each Condition: home in good condition. elevated wbc resolved. back pain still present. open repair left inguinal hernia 12/20/2022. well tolerated - HPI History of Present Illness: presented to ED with complaint of back pain, left groin pain, left testicle pain and left groin bulge. wbc elevated at 18. unremarkable ct abdomen and ultrasound testicle. on exam bilateral inguinal hernias, both soft and easily reducible. wbc normalized without antibiotics. open left inguinal hernia repaired 12/20/2022. well tolerated - CONSULTS | PROCEDURES Procedures: as above - HOSPITAL COURSE Hospital Course: as above - ALLERGIES Allergies/Adverse Reactions: Allergies Allergy/AdvReac Type Severity Reaction Status Date / Time No Known Drug Allergies Allergy Verified 12/18/22 13:45 - MEDICATIONS Home Medications: Ambulatory Orders Medication Instructions Recorded Confirmed Oxycodone HCl/Acetaminophen 1 tab PO Q6HR PRN #30 tablet 12/20/22 [Percocet 5-325 mg Tablet] - PHYSICAL EXAM AT DISCHARGE General Appearance: positive: Alert Eyes Bilateral: positive: PERRL, EOMI, No scleral icterus ENT: positive: No signs of dehydration Neck: positive: No JVD Respiratory: positive: No respiratory distress Abdomen: positive: Non-tender, No distention Neurologic/Psychiatric: positive: Oriented x3 - LABS Result Diagrams: 12/20/22 07:25 12/18/22 14:02 - FOLLOW UP Follow Up: surgery. call to make an appointment [phone]"
[2022-12-20 13:35] VITALS: BP 159/79
== END 2022-12-20 13:00 | disposition home or self-care (01) ==
LOC: ED 13:33 → MS2 19:03
PROVIDERS: ADMIT Surgery; ATTEND Surgery
PROC: 0YU60JZ Supplement Left Inguinal Region with Synthetic Substitute, Open Approach (ICD-10-PCS; principal; 2022-12-20 13:45)
DX: K40.20 Bilateral inguinal hernia, without obstruction or gangrene, not specified as recurrent (principal); F17.200 Nicotine dependence, unspecified, uncomplicated
CPT/HCPCS: 36415; 49505; 74177; 76870; 80053; 81001; 83690; 85025; 85027; 93975; 96374; 96376; 99285; C1781; G0378; J1170; J7120; Q9967; 81003; 87086

== ENCOUNTER 2023-10-17 10:25 | Emergency (ER) | payer MEDICAID, OTHER ==
--- NOTE | 2023-10-17 11:10 | ED Physician Documentation ---
PD HPI HEENT - Stated complaint Stated Complaint: LT FACE SWELLING - Chief complaint Chief Complaint: Heent - History obtained from History obtained from: Patient - Additional information Additional information: The patient comes to the emergency department chief complaint of left facial swelling and pain that started overnight and has gotten worse. He states he has a tooth that has been bothering him and now, it hurts very badly when he puts pressure on it. He denies any fevers or chills. No drainage from around the tooth. No gingival swelling or pain. He states he feels the pain from the t ooth up into his face and his jewish. He has been noticing that the left side of his face is puffy and he can even see his cheek and his visual field because of the degree of swelling. No other complaints at this time. PD PAST MEDICAL HISTORY - Past Medical History Past Medical History: No Cardiovascular: None Neuro: None Endocrine/Autoimmune: None GI: None : None Psych: None Musculoskeletal: None Derm: None - Past Surgical History Past Surgical History: Yes General: Other - Present Medications Home Medications: Ambulatory Orders Medication Instructions Recorded Confirmed Amoxicillin 500 mg PO TID 7 Days #21 cap 10/17/23 HYDROcod/ACETAM 5/325 [[place] 5/325] 1 - 2 tablet PO Q6H PRN #14 tablet 10/17/23 - Allergies Allergies/Adverse Reactions: Allergies Allergy/AdvReac Type Severity Reaction Status Date / Time No Known Drug Allergies Allergy Verified 10/17/23 11:10 - Social History Does the pt smoke?: Yes Smoking Status: Current every day smoker Does the pt drink ETOH?: Yes Does the pt have substance abuse?: No PD ED PE NORMAL - Vitals Vital signs reviewed: Yes - General General: Alert and oriented X 3, No acute distress, Well developed/nourished - HEENT HEENT: Atraumatic, PERRL, EOMI, Moist mucous membranes, Other (Dental tenderness of left maxillary Premolar. Severe decay of tooth just anterior to this. No gingival tenderness, edema, or drainage. No palatal edema or tenderness. L facial edema without mass or fluctuance.) - Neck Neck: No adenopathy - Respiratory Respiratory: No respiratory distress - Derm Derm: Warm and dry - Extremities Extremities: No deformity - Neuro Neuro: Alert and oriented X 3 - Psych Psych: Normal mood, Normal affect Results - Vitals Vitals: Vital Signs - 24 hr 10/17/23 10:29 Temperature 37.2 C Heart Rate 93 Respiratory 16 Rate Blood Pressure 153/93 H O2 Saturation 97 Oxygen O2 Source Room air PD Medical Decision Making - ED course Complexity details: considered differential, d/w patient ED course: The patient appeared to have a dental infection and we have discussed antibiotic treatment for this. I have sent prescriptions for the patient's antibiotics and some analgesia to the [facility] [[email or web address] pharmacy in [place] his request. We have discussed the need for definitive dental follow-up. Departure - Departure Disposition: 01 Home, Self Care Clinical Impression: Infected dental caries Condition: Stable Instructions: ED Abscess Tooth Prescriptions: Amoxicillin 500 mg PO TID 7 Days #21 cap HYDROcod/ACETAM 5/325 [[place] 5/325] 1 - 2 tablet PO Q6H PRN #14 tablet PRN Reason: Pain Comments: Your prescription for antibiotics and pain medication has been electronically transmitted to the [facility] in [place]. Please pick the antibiotics up this morning and start them as soon as you get them. Is very important that you follow-up with a dentist for definitive care of your teeth. Please make the next available appointment.
[2023-10-17 11:29] VITALS: BP 155/89; O2SAT 98
== END 2023-10-17 11:23 | disposition home or self-care (01) ==
LOC: ED 10:25
DX: K04.7 Periapical abscess without sinus (principal); K02.9 Dental caries, unspecified; F17.200 Nicotine dependence, unspecified, uncomplicated
CPT/HCPCS: 99282; 99283